=== PATIENT | female | born 1995 | race African-American/Black ===

== ENCOUNTER 2021-05-30 16:01 | Emergency (ER) | payer MEDICAID ==
[~2021-05-30] VITALS: Ht 154.9 cm; Wt 77.3 kg
[2021-05-30 17:20] LABS: COVID AG,FIA SOURCE NASOPHARYNGEAL
[2021-05-30] MEDS ORDERED: IBUPROFEN 600 MG TABLET PO ONE (17:45)
[2021-05-30 19:43] VITALS: BP 119/68
== END 2021-05-30 19:55 | disposition home or self-care (01) ==
LOC: EMS 16:04
DX: R10.13 Epigastric pain (principal); R51.9 Headache, unspecified; M79.10 Myalgia, unspecified site; Z20.822 Contact with and (suspected) exposure to COVID-19
CPT/HCPCS: 81025; 87426; 99283; U0003